=== PATIENT | male | born 1965 | race Caucasian/White ===

== ENCOUNTER 2023-06-09 13:03 | Inpatient (IN) | payer MEDICAID ==
[~2023-06-09] VITALS: Ht 175.3 cm; Wt 75.3 kg
[2023-06-09 13:28] VITALS: BP_SYST 130; PULSE 58; RESP 16; TEMP 98.8; O2SAT 92
[2023-06-09] MEDS ORDERED: IPRATROPIUM/ALBUTEROL SULFATE 3 ML AMPUL.NEB (DUONEB) INH ONE (13:45)
[2023-06-09] MEDS ORDERED: cefTRIAXone 1 GM in D5W 50 ML IV ONE (14:45)
[2023-06-09] MEDS ORDERED: cefTRIAXone 1 GM VIAL ONE (14:55)
[2023-06-09 15:42] LABS: HEMATOCRIT 37.6 % (36-54); HEMOGLOBIN 12.1 g/dL (14.0-18.0); MEAN CORPUSCULAR HEMOGLOBIN 30 pg (27-31); MEAN CORPUSCULAR HGB CONC 32 % (32-36); MEAN CORPUSCULAR VOLUME 93 fL (79.0-98.0); RED BLOOD CELL COUNT(AUTO) 4.03 MIL/uL (4.2-6.2); RED CELL DISTRIBUTION WIDTH 13.6 % (9.0-15.0); WHITE BLOOD COUNT (AUTO) 14.5 K/uL (4.8-10.8)
[2023-06-09 16:02] LABS: ALANINE AMINOTRANSFERASE 41 U/L (12-78); ANION GAP 6 (5-15); ASPARTATE AMINOTRANSFERASE 72 U/L (10-37); CALCIUM 7.9 mg/dL (8.4-11.0); CARBON DIOXIDE 31 mmol/L (23-29); CHLORIDE 98 mmol/L (98-107); CREATININE 0.83 mg/dL (0.55-1.30); GFR AFRICAN AMERICAN 122 mL/min (>90); GFR NON AFRICAN-AMERICAN 101 mL/min (>90); GLUCOSE 103 mg/dL (74-106); INR 1.2 (0.80-1.20); SODIUM SERUM 135 mmol/L (136-145); TOTAL PROTEIN, SERUM 5.9 g/dL (6.4-8.3); UREA NITROGEN, BLOOD 15 mg/dL (8-21)
[2023-06-09 16:05] LABS: CREATINE KINASE, TOTAL 45 U/L (39-308); PHOSPHORUS 2.9 mg/dL (2.7-4.5)
[2023-06-09 16:39] LABS: PLATELET COUNT (AUTO) 162 K/uL (130-430)
[2023-06-09 16:42] LABS: BAND % (MANUAL) 8 % (0-6); BASOPHILS % (MANUAL) 0 % (0-2); EOSINOPHILS % (MANUAL) 0 % (0-7); LYMPHOCYTES % (MANUAL) 3 % (20-46)
[2023-06-09 16:43] LABS: OVALOCYTES FEW
[2023-06-09] MEDS ORDERED: NACL 0.9% 1,000 ML IV ONE (16:45)
[2023-06-09] MEDS ORDERED: POTASSIUM CHLORIDE 20 MEQ/PKT PACKET PO ONE (16:45)
[2023-06-09] MEDS ORDERED: IPRATROPIUM/ALBUTEROL SULFATE 3 ML AMPUL.NEB (DUONEB) INH PRN (17:15)
[2023-06-09 17:22] LABS: BILIRUBIN,URINE NEGATIVE (NEGATIVE); BLOOD, URINE NEGATIVE (NEGATIVE); CLARITY/URINE CLEAR (CLEAR); GLUCOSE,URINE NEGATIVE (NEGATIVE); KETONES,URINE NEGATIVE (NEGATIVE); LEUKOCYTE ESTERASE ,URINE NEGATIVE (NEGATIVE); NITRITE, URINE NEGATIVE (NEGATIVE); PROTEIN URINE 1+ (NEGATIVE); UROBILINOGEN,URINE 0.2 (0.2-1.0)
[2023-06-09 17:28] VITALS: BP_SYST 130; PULSE 58; O2SAT 96
[2023-06-09] MEDS ORDERED: MUPIROCIN 2% TOPICAL OINTMENT 22 GM NS PRN (17:30)
[2023-06-09] MEDS ORDERED: MAGNESIUM SULFATE 50 ML IV PRN (17:30)
[2023-06-09] MEDS ORDERED: ACETAMINOPHEN 325 MG TABLET PO PRN ×2 (17:30→17:45)
[2023-06-09] MEDS ORDERED: LORazepam 2 MG/ML VIAL IVP PRN (17:30)
[2023-06-09] MEDS ORDERED: DOCUSATE SODIUM 100 MG CAPSULE PO PRN (17:30)
[2023-06-09] MEDS ORDERED: POTASSIUM CHLORIDE 20 MEQ TAB.PRT.SR PO PRN (17:30)
[2023-06-09] MEDS ORDERED: ZOLPIDEM TARTRATE 5 MG TABLET PO PRN (17:30)
[2023-06-09] MEDS ORDERED: ONDANSETRON HCL 4 MG/2 ML VIAL IVP PRN (17:30)
[2023-06-09 17:32] LABS: COLOR,URINE YELLOW (YELLOW)
[2023-06-09] MEDS ORDERED: NACL 0.9% 1,000 ML IV SCH (17:45)
[2023-06-09] MEDS ORDERED: PIPERACILLIN/TAZO 3.375 GM in NS 50 ML IV ONE (17:45)
[2023-06-09 17:49] LABS: BARBITURATE, URINE NEGATIVE (NEG <=200); METHAMPHETAMINES SCREEN,URINE POSITIVE (NEG <=500); URINE AMPHETAMINE POSITIVE (NEG <=500)
[2023-06-09 17:50] LABS: BENZODIAZEPINE, URINE NEGATIVE (NEG <=150); CANNABINOID, URINE NEGATIVE (NEG <=50); COCAINE, URINE NEGATIVE (NEG <=150); OPIATE, URINE POSITIVE (NEG <=100); PHENCYCLIDINE SCREEN,URINE NEGATIVE (NEG <=25); URINE METHADONE NEGATIVE (NEG <=200); URINE OXYCODONE SCREEN NEGATIVE (NEG <=100); URINE PROPOXYPHENE SCREEN NEGATIVE (NEG <=300)
[2023-06-09 17:55] LABS: BACTERIA,URINE RARE /HPF (None Seen); RBC,URINE 0-3 /HPF (0-3); WBC,URINE 0-3 /HPF (0-3)
[2023-06-09 17:56] LABS: UR TRICYCLIC ANTIDEPRESSANTS NEGATIVE (NEG <=300)
[2023-06-09] MEDS ORDERED: PIPERACILLIN/TAZOBACTAM 3.375 GM/VIAL (ZOSYN) IV ONE (18:09)
[2023-06-09 18:20] LABS: COVID19 ANTIGEN SOFIA FIA NEGATIVE (NEGATIVE); INFLUENZA TYPE A Negative (NEGATIVE); INFLUENZA TYPE B NEGATIVE (NEGATIVE)
[2023-06-09 22:00] VITALS: O2SAT 99
[2023-06-09 22:10] VITALS: BP_SYST 147; PULSE 95; RESP 20; TEMP 98.3
[2023-06-10 00:30] VITALS: BP_SYST 140; PULSE 95; RESP 20; TEMP 99.1; O2SAT 99
[2023-06-10 01:37] VITALS: O2SAT 96
[2023-06-10] MEDS: PIPERACILLIN/TAZO 3.375 GM in NS 50 ML IV SCH ×3 (06:00)
[2023-06-10 06:35] LABS: BASOPHILS % (AUTO) 0.2 % (0.0-2.0); EOSINOPHILS % (AUTO) 0.3 % (0.0-4.0); HEMATOCRIT 37.6 % (36-54); HEMOGLOBIN 12.1 g/dL (14.0-18.0); LYMPHOCYTES # (AUTO) 0.4 K/uL (1.0-5.5); LYMPHOCYTES % (AUTO) 2.8 % (20.5-51.5); MEAN CORPUSCULAR HEMOGLOBIN 30 pg (27-31); MEAN CORPUSCULAR HGB CONC 32 % (32-36); MEAN CORPUSCULAR VOLUME 94 fL (79.0-98.0); MONOCYTES # (AUTO) 0.9 K/uL (0.0-1.0); MONOCYTES % (AUTO) 6.9 % (1.7-9.3); NEUTROPHILS # (AUTO) 11.9 K/uL (1.8-7.7); NEUTROPHILS % (AUTO) 89.8 % (40.0-70.0); PLATELET COUNT (AUTO) 139 K/uL (130-430); RED BLOOD CELL COUNT(AUTO) 4.02 MIL/uL (4.2-6.2); RED CELL DISTRIBUTION WIDTH 13.5 % (9.0-15.0); WHITE BLOOD COUNT (AUTO) 13.2 K/uL (4.8-10.8)
[2023-06-10 06:51] LABS: CALCIUM 7.8 mg/dL (8.4-11.0); CREATININE 0.66 mg/dL (0.55-1.30); POTASSIUM 3.2 mmol/L (3.5-5.1)
[2023-06-10 08:00] VITALS: BP_SYST 151; PULSE 107; RESP 20; TEMP 99.2; O2SAT 98
[2023-06-10] MEDS ORDERED: ALBMDI INH (08:06)
[2023-06-10] MEDS ORDERED: LEVO-62 PO (08:06)
[2023-06-10 12:00] VITALS: BP_SYST 147; PULSE 99; RESP 20; TEMP 98.9; O2SAT 98
[2023-06-10 12:04] LABS: METAMYELOCYTES % 0 % (0-0); MONOCYTES % (MANUAL) 13 % (0-11)
[2023-06-10 12:05] LABS: PLATELET ESTIMATE ADEQUATE (ADEQUATE)
== END 2023-06-10 13:05 | disposition left against medical advice (07) | DRG 139 ==
LOC: SED 13:03 → SMU 17:03
PROVIDERS: ADMIT General Practice; ATTEND General Practice
DX: J18.9 Pneumonia, unspecified organism (principal); E44.0 Moderate protein-calorie malnutrition; E87.20 Acidosis, unspecified; E87.6 Hypokalemia; Z20.822 Contact with and (suspected) exposure to COVID-19; Z53.29 Procedure and treatment not carried out because of patient's decision for other reasons; F15.10 Other stimulant abuse, uncomplicated; Z91.199 Patient's noncompliance with other medical treatment and regimen due to unspecified reason; Z68.24 Body mass index [BMI] 24.0-24.9, adult
CPT/HCPCS: 36415; 71045; 80048; 80053; 80307; 81000; 81001; 81015; 82550; 83037; 83605; 83735; 83880; 84100; 84484; 85007; 85025; 85027; 85610-TC; 85730-TC; 87040; 93005; 94640; 94760; 99285; J0696; J2543